=== PATIENT | male | born 1970 | race Native Hawaiian/Other Pacific Islander ===

== ENCOUNTER 2018-09-07 07:55 | Outpatient (CLI) | payer OTHER | END 2018-09-07 21:02 | disposition home or self-care (01) | LOC: RAD 07:55 | DX: M25.552 Pain in left hip (principal) ==

== ENCOUNTER 2019-03-23 20:11 | Outpatient (CLI) | payer OTHER ==
[2019-03-23 20:41] LABS: PLATELET COUNT 196 K/uL (142-355)
[2019-03-23 20:46] LABS: POTASSIUM 3.9 mmol/L (3.6-5.2)
== END 2019-03-23 22:49 | disposition home or self-care (01) ==
LOC: LAB 20:11
PROVIDERS: Nurse Practitioner
DX: E53.8 Deficiency of other specified B group vitamins (principal); R73.9 Hyperglycemia, unspecified; R53.82 Chronic fatigue, unspecified; D69.6 Thrombocytopenia, unspecified; E55.9 Vitamin D deficiency, unspecified
CPT/HCPCS: 80053; 82306; 82607; 83036; 84402; 84403; 85027